=== PATIENT | female | born 1990 | race Caucasian/White ===

== ENCOUNTER 2016-05-18 09:02 | Emergency (ER) | payer SELFPAY ==
[2016-05-18] MEDS ORDERED: IBUPROFEN 200 MG TAB PO ONE (09:06)
--- NOTE | 2016-05-18 09:11 | EDPHY ---
H & P Time Seen by Provider: 05/18/16 09:05 HPI/ROS: CHIEF COMPLAINT: Left hip pain HISTORY OF PRESENT ILLNESS: The patient is a 26-year-old homeless female who called EMS complaining of left hip pain. She states that it has been getting gradually more painful over the last few days. She does a lot of walking. She sleeps under a bridge. She states that she slipped on her other side last night. She denies low back pain. She denies any weakness numbness or paralysis. No bowel or bladder abnormalities. she is able to ambulate. REVIEW OF SYSTEMS: Constitutional: denies: chills, fever, recent illness, recent injury EENTM: denies: blurred vision, double vision, nose congestion Respiratory: denies: cough, shortness of breath Cardiac: denies: chest pain, irregular heart rate, lightheadedness, palpitations Gastrointestinal/Abdominal: denies: abdominal pain, diarrhea, nausea, vomiting, blood streaked stools Genitourinary: denies: dysuria, frequency, hematuria, pain Musculoskeletal: See HPI Skin: denies: lesions, rash, jaundice, bruising Neurological: denies: headache, numbness, paresthesia, tingling, dizziness, weakness Hematologic/Lymphatic: denies: blood clots, easy bleeding, easy bruising Immunologic/allergic: denies: HIV/AIDS, transplant EXAM: GENERAL: Well-appearing, well-nourished and in no acute distress. HEAD: Atraumatic, normocephalic. EYES: Pupils equal round and reactive to light, extraocular movements intact, sclera anicteric, conjunctiva are normal. ENT: TMs normal, nares patent, oropharynx clear without exudates. Moist mucous membranes. NECK: Normal range of motion, supple without lymphadenopathy or JVD. LUNGS: Breath sounds clear to auscultation bilaterally and equal. No wheezes rales or rhonchi. HEART: Regular rate and rhythm without murmurs, rubs or gallops. ABDOMEN: Soft, nontender, normoactive bowel sounds. No guarding, no rebound. No masses appreciated. BACK: No CVA tenderness, no spinal tenderness, step-offs or deformities EXTREMITIES: Tenderness to left lateral trochanter, normal strength and Normal range of motion, no pitting or edema. No clubbing or cyanosis. NEUROLOGICAL: Cranial nerves II through XII grossly intact. Normal speech, normal gait. 5/5 strength, normal movement in all extremities, normal sensation PSYCH: Normal mood, normal affect. SKIN: Warm, dry, normal turgor, no visible rashes or lesions. Source: Patient, EMS Exam Limitations: No limitations - Personal History LMP (Females 10-55): 8-14 Days Ago - Medical/Surgical History Hx Asthma: No Hx Chronic Respiratory Disease: No Hx Diabetes: No Hx Cardiac Disease: No Hx Renal Disease: No Hx Cirrhosis: No - Family History Significant Family History: No pertinent family hx - Social History Smoking Status: Never smoked Alcohol Use: Sober Drug Use: None Constitutional: Initial Vital Signs Temperature (C) 36.3 C 05/18/16 09:13 Heart Rate 112 H 05/18/16 09:13 Respiratory Rate 16 05/18/16 09:13 Blood Pressure 127/86 H 05/18/16 09:13 O2 Sat (%) 95 05/18/16 09:13 O2 Delivery Mode Room Air Allergies/Adverse Reactions: Penicillins Allergy (Verified 05/18/16 09:12) Sulfa (Sulfonamide Antibiotics) Allergy (Verified 05/18/16 09:12) Medical Decision Making - Diagnostics Imaging: X-ray: The hip x-ray was obtained. I viewed the images myself on the PACS system. My interpretation of the images is: Negative. The radiologist interpretation is pending. ED Course/Re-evaluation: The patient has symptoms consistent with a bursitis. No traumatic incident. No low back pain. No neurologic deficits. I will perform imaging to rule out occult fracture but otherwise will treat with ibuprofen. 12:13 p.m. the patient is able to ambulate. Her x-ray is reassuring. I will treat with ibuprofen have her follow up with the clinic. She understands and agrees with this plan. Differential Diagnosis: Partial list of the Differential diagnosis considered include but were not limited to; bursitis, tendonitis, contusion and although unlikely based on the history and physical exam, I also considered fracture, dislocation, radiculopathy. I discussed these differential diagnoses and the plan with the patient as well as the usual and expected course. The patient understands that the diagnosis is provisional and that in medicine we are not always correct and that further workup is often warranted. Usual and customary warnings were given. All of the patient's questions were answered. The patient was instructed to return to the emergency department should the symptoms at all worsen or return, otherwise to followup with the physician as we discussed. - Data Points Medications Given: Discontinued Medications Ibuprofen (Motrin) 800 mg PO EDNOW ONE Stop: 05/18/16 09:07 Last Admin: 05/18/16 09:17 Dose: 800 mg Departure - Departure Disposition: Home, Routine, Self-Care Clinical Impression: Hip pain, left Condition: Fair Instructions: Hip Pain (ED) Additional Instructions: continue to take ibuprofen 4 days likely to bursitis or tendinitis and follow up with the primary care physician listed in the next couple of days. Referrals: Lorenzo Ahmadi MD [Medical Doctor] - As per Instructions [facility] [Clinic] - As per Instructions
[2016-05-18 09:16] VITALS: RESP 16
[2016-05-18 12:53] VITALS: BP 126/81; PULSE 100; TEMP 98.1; O2SAT 96
== END 2016-05-18 12:52 | disposition home or self-care (01) ==
DX: M25.552 Pain in left hip (principal)

== ENCOUNTER 2016-07-24 18:39 | Emergency (ER) | payer MEDICAID ==
[~2016-07-24 18:39] MED LIST: EMTRICITABINE/TENOFOVIR 200MG/300MG TAB PO SCH; RALTEGRAVIR 400 MG TAB PO SCH
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
[2016-07-24 18:57] VITALS: BP 125/82; PULSE 87; RESP 18; TEMP 98.1; O2SAT 96
[2016-07-24] MEDS ORDERED: CEFTRIAXONE IM 350 MG/ML SYRINGE IM ONE (19:49)
[2016-07-24] MEDS ORDERED: RALTEGRAVIR 400 MG TAB PO ONE ×2 (19:55→23:00)
[2016-07-24] MEDS ORDERED: EMTRICITABINE/TENOFOVIR 200MG/300MG TAB PO ONE ×2 (19:55→23:00)
[2016-07-24] MEDS ORDERED: AZITHROMYCIN 250 MG TAB PO ONE (23:00)
[2016-07-24] MEDS ORDERED: IBUPROFEN 600 MG TAB PO ONE (23:00)
[2016-07-24] MEDS ORDERED: ULIPRISTAL ACETATE 30 MG TAB PO ONE (23:00)
[2016-07-25 00:52] LABS: ALANINE AMINOTRANSFERASE 33 IU/L (9-52); ALKALINE PHOSPHATASE 65 IU/L (38-126); ANION GAP 13 mEq/L (8-16); ASPARTATE AMINOTRANSFERASE 23 IU/L (14-46); BILIRUBIN,TOTAL 0.4 mg/dL (0.1-1.4); CALCIUM 9.8 mg/dL (8.5-10.4); CARBON DIOXIDE 23 mEq/l (22-31); CHLORIDE 106 mEq/L (97-110); CREATININE 0.8 mg/dL (0.6-1.0); GLOMERULAR FILTRATION RATE > 60; GLUCOSE 102 mg/dL (70-100); POTASSIUM 3.5 mEq/L (3.5-5.2); SODIUM 142 mEq/L (134-144)
[2016-07-25 00:55] LABS: % IMMATURE GRANULYOCYTES 0.3 % (0.0-1.1); ABSOLUTE IMMATURE GRANULOCYTES 0.03 10^3/uL (0.00-0.10); ADD DIFF? NO; ADD MORPH? NO; ADD SCAN? NO; ATYPICAL LYMPHOCYTE FLAG 30 (0-99); FRAGMENT RBC FLAG 0 (0-99); HEMATOCRIT 41.9 % (38.0-47.0); LEFT SHIFT FLG 0 (0-99); LIPEMIA HEMOLYSIS FLAG 80 (0-99); MEAN CELL HEMOGLOBIN 28.2 pg (27.9-34.1); MEAN CELL HEMOGLOBIN CONCENTR. 33.4 g/dL (32.4-36.7); MEAN CELL VOLUME 84.3 fL (81.5-99.8); MEAN PLATELET VOLUME 11.4 fL (8.7-11.7); PLATELET CLUMPS FLAG 0 (0-99); PLATELET COUNT 321 10^3/uL (150-400); RED BLOOD CELL COUNT 4.97 10^6/uL (4.18-5.33)
[2016-07-25 01:08] LABS: BILIRUBIN-CONJUGATED 0.2 mg/dL (0.0-0.5); BILIRUBIN-UNCONJUGATED 0.2 mg/dL (0.0-1.1)
[2016-07-25 02:38] LABS: HEPATITIS B SURFACE ANTIBODY POSITIVE (NEGATIVE)
== END 2016-07-25 00:14 | disposition home or self-care (01) ==
LOC: EDUNIT# → EEVIPCON 18:39 → SANE 07-25 00:14
DX: T74.21XA Adult sexual abuse, confirmed, initial encounter (principal)
CPT/HCPCS: G0472; J0696

== ENCOUNTER 2016-08-22 09:44 | Emergency (ER) | payer MEDICAID ==
--- NOTE | 2016-08-22 09:54 | EDPHY ---
H & P Time Seen by Provider: 08/22/16 09:53 - Medical/Surgical History Hx Asthma: No Hx Chronic Respiratory Disease: No Hx Diabetes: No Hx Cardiac Disease: No Hx Renal Disease: No Hx Cirrhosis: No Hx Alcoholism: No Hx HIV/AIDS: No Hx Splenectomy or Spleen Trauma: No Other PMH: bipolar, "arthritis" - Social History Smoking Status: Never smoked Allergies/Adverse Reactions: lamotrigine [From Lamictal] Allergy (Verified 08/22/16 09:53) Penicillins Allergy (Verified 08/22/16 09:53) Sulfa (Sulfonamide Antibiotics) Allergy (Verified 08/22/16 09:53) Home Medications: Medication Instructions Recorded Emtricitabine/Tenofovir (Tdf) 1 each PO DAILY #3 tablet 07/24/16 [Truvada 200 mg-300 mg Tablet] Raltegravir [Isentress] 400 mg PO BID #7 tab 07/24/16 Medical Decision Making ED Course/Re-evaluation: CHIEF COMPLAINT: Psychiatric evaluation HISTORY OF PRESENT ILLNESS: must have 4 elements: Location, Quality, Severity , Duration, Timing, Context, Modifying Factors, Associated Signs and Symptoms REVIEW OF SYSTEMS: A 10 point review of systems was performed and is negative with the exception of the elements mentioned in the history of present illness. PHYSICAL EXAM: General Appearance: Alert, well hydrated, appropriate, and non-toxic appearing. Head: Atraumatic without scalp tenderness or obvious injury Eyes: Pupils equal, round, reactive to light and accommodation, EOMI, no trauma , no injection. Ears: Clear bilaterally, no perforation, normal landmarks Nose: Atraumatic, no rhinorrhea, clear. Throat: There is no erythema or exudates, no lesions, normal tonsils, mucus membranes moist. Neck: Supple, 2+ carotid upstroke, nontender, no lymphadenopathy. Respiratory: No retractions, no distress, no wheezes, and no accessory muscle use. Lungs are clear to auscultation bilaterally. Cardiovascular: Regular rate and rhythm, no murmurs, rubs, or gallops. Bilateral carotid, radial, dorsalis pedis, and posterior tibial pulses intact. Good capillary refill all extremities. Gastrointestinal: Abdomen is soft, nontender, non-distended, no masses, no rebound, no guarding, no peritoneal signs. Musculoskeletal: Normal active ROM of all extremities, atraumatic. Neurological: Alert, appropriate, and interactive. The patient has normal DTRs and non-focal cranial nerves, motor, sensory, and cerebellar exam. Skin: No rashes, good turgor, no nodules on palpation. Past medical history: Past surgical history: Family history: Social history: DIFFERENTIAL DIAGNOSIS: The differential diagnosis for the patient's depression included but was not limited to functional and major depression, situational depression, medication side effect, drugs, and alcohol abuse. MEDICAL DECISION MAKING: Patient is in no acute distress and is hemodynamically stable. We are awaiting psychiatric team's evaluation. Patient has known history of psychiatric disorders and is here for evaluation.
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
[2016-08-22 10:37] LABS: % IMMATURE GRANULYOCYTES 0.3 % (0.0-1.1); ABSOLUTE IMMATURE GRANULOCYTES 0.02 10^3/uL (0.00-0.10); ADD DIFF? NO; ADD MORPH? NO; ADD SCAN? NO; ATYPICAL LYMPHOCYTE FLAG 20 (0-99); FRAGMENT RBC FLAG 0 (0-99); HEMATOCRIT 40.6 % (38.0-47.0); HEMOGLOBIN 13.6 g/dL (12.6-16.3); LEFT SHIFT FLG 10 (0-99); LIPEMIA HEMOLYSIS FLAG 80 (0-99); MEAN CELL HEMOGLOBIN 28.4 pg (27.9-34.1); MEAN CELL HEMOGLOBIN CONCENTR. 33.5 g/dL (32.4-36.7); MEAN CELL VOLUME 84.8 fL (81.5-99.8); MEAN PLATELET VOLUME 10.9 fL (8.7-11.7); PLATELET CLUMPS FLAG 30 (0-99); PLATELET COUNT 288 10^3/uL (150-400); RED BLOOD CELL COUNT 4.79 10^6/uL (4.18-5.33); RED CELL DISTRIBUTION WIDTH 14.1 % (11.5-15.2)
[2016-08-22 10:53] LABS: ANION GAP 14 mEq/L (8-16); CALCIUM 9.7 mg/dL (8.5-10.4); CARBON DIOXIDE 22 mEq/l (22-31); CHLORIDE 109 mEq/L (97-110); CREATININE 0.8 mg/dL (0.6-1.0); ETHANOL SERUM < 10 mg/dL (0-10); GLOMERULAR FILTRATION RATE > 60; GLUCOSE 78 mg/dL (70-100); SALICYLATE < 1.0 mg/dL (2.0-20.0); SODIUM 145 mEq/L (134-144)
[2016-08-22] MEDS ORDERED: CALCIUM CARBONATE 500 MG CHEWABLE TAB PO ONE (13:05)
[2016-08-22] MEDS ORDERED: CALCIUM CARBONATE 500 MG CHEWABLE TAB PO PRN (13:14)
[2016-08-22 15:35] VITALS: BP 111/74; PULSE 64; RESP 17; TEMP 98.2; O2SAT 96
== END 2016-08-22 15:36 | disposition home or self-care (01) ==
DX: F41.9 Anxiety disorder, unspecified (principal); J45.909 Unspecified asthma, uncomplicated; Z04.6 Encounter for general psychiatric examination, requested by authority
CPT/HCPCS: 80305; G0480

== ENCOUNTER 2016-09-10 04:11 | Emergency (ER) | payer MEDICAID, OTHER ==
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
[2016-09-10 05:14] VITALS: BP 114/82; PULSE 99; RESP 16; TEMP 97.9; O2SAT 96
== END 2016-09-10 05:14 | disposition home or self-care (01) ==
DX: M25.531 Pain in right wrist (principal); F17.200 Nicotine dependence, unspecified, uncomplicated; J45.909 Unspecified asthma, uncomplicated